=== PATIENT | female | born 1995 | race Caucasian/White ===

== ENCOUNTER 2022-08-13 16:02 | Outpatient (CLI) | payer OTHER | END 2022-08-13 16:03 | disposition home or self-care (01) | LOC: CSHRAD 16:02 → EDSEX 16:02 → CSHRAD 16:03 | PROVIDERS: ATTEND Internal Medicine | DX: M25.551 Pain in right hip (principal); M25.552 Pain in left hip; M54.6 Pain in thoracic spine; Z96.698 Presence of other orthopedic joint implants | CPT/HCPCS: 72072 ==